=== PATIENT | male | born 1960 | race Caucasian/White ===

== ENCOUNTER → 2023-11-02 07:12 | Outpatient (REF) | payer MEDICARE, SELFPAY | LOC: RCS 07:12 | PROVIDERS: ATTENDING PHYSICIAN Nuclear Medicine Nuclear Cardiology; FAMILY PHYSICIAN Family Medicine | DX: R07.89 Other chest pain (principal); R94.31 Abnormal electrocardiogram [ECG] [EKG]; I34.0 Nonrheumatic mitral (valve) insufficiency | CPT/HCPCS: 93306 ==

== ENCOUNTER → 2023-11-08 12:42 | Outpatient (REF) | payer MEDICARE, SELFPAY | LOC: RCS 12:42 | PROVIDERS: ATTENDING PHYSICIAN Nuclear Medicine Nuclear Cardiology; FAMILY PHYSICIAN Family Medicine | DX: R07.89 Other chest pain (principal); R94.31 Abnormal electrocardiogram [ECG] [EKG]; I34.0 Nonrheumatic mitral (valve) insufficiency | CPT/HCPCS: 93017; 93350 ==

== ENCOUNTER → 2023-11-19 06:37 | Day surgery (SDC) | payer MEDICARE, SELFPAY | LOC: GI 06:37 | PROVIDERS: ATTENDING PHYSICIAN Internal Medicine Gastroenterology; FAMILY PHYSICIAN Family Medicine | DX: Z12.11 Encounter for screening for malignant neoplasm of colon (principal); Z86.010 Personal history of colon polyps; K64.8 Other hemorrhoids | CPT/HCPCS: G0105 ==

== ENCOUNTER → 2024-12-05 11:52 | Outpatient (REF) | payer MEDICARE, SELFPAY | LOC: HWRAD 11:52 | PROVIDERS: ATTENDING PHYSICIAN Family Medicine | DX: M54.2 Cervicalgia (principal); M25.561 Pain in right knee; M25.562 Pain in left knee; M79.641 Pain in right hand; M79.642 Pain in left hand; M79.671 Pain in right foot; M79.672 Pain in left foot | CPT/HCPCS: 72052; 73130; 73564; 73630 ==

== ENCOUNTER 2025-01-26 07:56 | Emergency (ER) | payer MEDICARE, SELFPAY ==
[2025-01-26] VITALS (8 sets, daily range): BP systolic 123–153; BP diastolic 64–86; PULSE 55–61; BMI 23.1
[2025-01-26] MEDS: NSS 1000 IV (08:55)
[2025-01-26 09:01] LABS: % Basophils 0.7 % (0-2); % Eosinophils 2.6 % (0-6); % Immature Granulocytes 0.2 % (0-0.5); % Lymphocytes 27.4 % (20.5-51.1); % Monocytes 12.1 % (1.7-9.3); Absolute Eosinophils 0.1 10^3/uL (0-0.7); Absolute Lymphocytes 1.5 10^3/uL (1.2-3.4); Absolute Monocytes 0.7 10^3/uL (0.1-0.6); Absolute Neutrophils 3.1 10^3/uL (1.4-6.5); Hematocrit 46.9 % (39.0-52.0); Hemoglobin 16.6 g/dL (13.0-18.0); Mean Corp Hgb Conc. 35.4 g/dL (33.0-37.0); Mean Corpuscular Hgb 34.3 pg (27.0-31.0); Mean Corpuscular Volume 96.9 fL (80.0-94.0); Mean Platelet Volume 12.1 fL (7.4-10.4); Nucleated Red Blood Cells % 0 % (-); Platelet Count 214 10^3/uL (130-400); Red Blood Cell Count 4.84 10^6/uL (4.70-6.10); Red Cell Dist. Width 12.6 % (11.5-14.5); White Blood Cell Count 5.4 10^3/uL (4.8-10.8)
[2025-01-26 09:26] LABS: ALT (SGPT) 25 U/L (0-50); AST (SGOT) 31 U/L (17-59); Albumin 4.3 g/dl (3.5-5.0); Alkaline Phosphatase 70 U/L (38-126); Blood Urea Nitrogen 15 mg/dl (9-20); Calcium 9.7 mg/dl (8.4-10.2); Carbon Dioxide 27 mmol/L (22-30); Chloride 108 mmol/L (98-107); Creatine Phosphokinase 143 U/L (55-170); Estimated Creatinine Clearance 107 ml/min; Glucose 99 mg/dl (70-99); Potassium 4.2 mmol/L (3.5-5.1); Sodium 141 mmol/L (135-145); Total Bilirubin 1.9 mg/dl (0.2-1.3); eGFR > 60.00
--- NOTE | 2025-01-26 10:30 | ED.GENMED ---
History of Present Illness
General
Chief Complaint: Dizziness
Source: patient and spouse
Time Seen by Provider: 01/26/25 08:36
History of Present Illness
History of Present Illness:
64-year-old male who presents with feeling lightheadedness for the last week. States that it comes and goes. States yesterday seem to be a little worse. He was outside doing work and does often ride his bike. States he often rides more than 40
to 45 miles. Admits he was also on the stationary bike. Went to [place] over the weekend and just felt like maybe he should not do his normal bike routine. States it is really just a lightheadedness. Denies any chest pain. states that
he does drink 2 cups of coffee a day and patient states he could be better in his hydration but does try to drink water. Denies melena or hematochezia. No chest pain. No back pain. No headache. No vision change. No gait disturbance. Currently
feels better. No symptoms while lying in bed.
Past History
Past History
ED Past Medical History: Asthma
ED Past Surgical History: Orthopedic
Patient has exhibited threatening behavior?: No
PSI?: No
Phy Exam
Physical Exam
Physical Exam:
CONSTITUTIONAL Patient alert and oriented to person, place and time. Well-appearing. Vital signs reviewed.
HEAD atraumatic, normocephalic.
EYES eyelids normal to inspection, Extraocular muscles intact, Conjunctiva normal, Sclera normal.
NECK normal range of motion, Trachea midline, no jugular venous distention.
RESPIRATORY CHEST No respiratory distress noted, Chest expansion equal, Bilateral breath sounds clear.
CARDIOVASCULAR regular rate and rhythm, Heart sounds normal.
ABDOMEN abdomen nontender, Bowel sounds normal. No distention.
BACK normal inspection, no obvious deformities
UPPER EXTREMITY range of motion normal, Motor strength normal, no cyanosis, no edema.
LOWER EXTREMITY range of motion normal, Motor strength normal, no cyanosis, no edema.
NEURO Speech normal, No focal motor deficits, Keila coma scale 15, Memory normal, Cranial Nerves intact to screening exam. Normal finger-nose, normal [id number]. No pronator drift
SKIN skin warm, dry, and normal in color.
Course
Orders/Labs/Results
Orders:
Orders
01/26/25 07:59
ECG [Electrocardiogram (*1)] Urgent
Reason for Study: Vertigo / Dizzy
01/26/25 08:00
EKG- Treatment ONCE
01/26/25 08:48
CMP [Comprehensive Metabolic Panel] Urgent
Complete Blood Count/With Diff Urgent
Creatine Phosphokinase Urgent
Comment: ADD ON
01/26/25 08:51
0.9% Sodium Chloride 1000 ml [Nss] 1,000 ml IV BOLUS
01/26/25 08:52
Add On- LAB Urgent
Tests Added?: cpk
Abnormal Lab Results
01/26/25
08:48
MCV 96.9 H fL
(80.0-94.0)
MCH 34.3 H pg
(27.0-31.0)
MPV 12.1 H fL
(7.4-10.4)
Absolute Monos (auto) 0.7 H 10^3/uL
(0.1-0.6)
Monocytes % 12.1 H %
(1.7-9.3)
Chloride 108 H mmol/L
(98-107)
Total Bilirubin 1.9 H mg/dl
(0.2-1.3)
01/26/25 08:48
01/26/25 08:48
Vital Signs
Initial and Last Documented VS:
Initial Vital Signs
Temp Pulse Resp BP Pulse Ox
97.7 F 65 18 141/86 100
01/26/25 07:57 01/26/25 07:57 01/26/25 07:57 01/26/25 07:57 01/26/25 07:57
Last Documented Vital Signs
Temp Pulse Resp BP Pulse Ox
97.7 F 49 14 123/64 98
01/26/25 07:57 01/26/25 10:00 01/26/25 10:00 01/26/25 10:00 01/26/25 09:30
MDM/Problems Addressed
Differential Diagnosis Includes:
CVA, dysrhythmia, electrolyte balance, dehydration, heart failure
MDM/Problems Addressed:
Lightheadedness, sinus bradycardia
*Pulse Oximetry
Patient hypoxic: no
*EKG
Interpreted by ED Provider?: Yes
Interpretation: normal
Rate: bradycardiac
Rhythm: sinus and PAC's
[place]: normal axis
Ischemia: no ischemia
*Billiard Table Repairer Interpretation
Rate: bradycardiac
Interpretation: normal
Rhythm: sinus
*Critical Care Note
Total Time (30-74mins, 75-104mins- exclusive of procedures): Not Applicable
Data Reviewed
Review of Other/Old Records Reveals: Other (2023 echocardiogram reveals normal ejection fraction)
Source: patient and spouse
Further Testing Considered But Not Given:
Considered head CT but no focal findings and symptoms are more lightheadedness. No vertigo or concerns for [employer] dysfunction
Patient Management
Escalation/DeEscalation of care consider admission/obs:
Patient appears quite well. Labs grossly reassuring. He is very active. Recommended to increase hydration and include electrolytes but also follow-up with PCP. If symptoms persist, further workup may be necessary. Labs and EKG thus far
unremarkable
ED Attending Note
-
Portions of this chart may have been created with voice recognition software.� Occasional wrong word or��sound alike� substitutions may have occurred due to the inherent limitations of voice recognition software.
Discharge Plan
Departure
Patient Disposition: Home (Routine Discharge)
Date of Disposition: 01/26/25
Time of Disposition: 10:36
Patient with high blood pressure during this ER visit?: No
Discharge Problem:
Episodic lightheadedness
Prescriptions:
No Action
montelukast [Singulair] 10 mg Tablet
10 mg PO DAILY
albuterol sulfate 90 mcg/actuation Hfa Aerosol Inhaler
1 puff INHALATION PRN PRN (Reason: SOB/ Exercise)
budesonide-formoterol [Symbicort] 160-4.5 mcg/actuation Hfa Aerosol Inhaler
2 puff INHALATION BID
Referrals:
Gila Tee MD [Family Provider] -
Activity Restrictions/Additional Instructions:
Please see your doctor in the next 1 week for follow-up and reevaluation. If symptoms persist, further workup may be necessary. In the meantime please drink plenty of fluids as discussed. Return immediately for chest pain, shortness of breath,
palpitations, worsening symptoms, dizziness, vision changes or any other concerns.
Interventions
Interventions:
*Risk Screen - Suicide Last Done: 01/26/25 07:57
*General Assessment Last Done: 01/26/25 07:57
*Neglect/Abuse Screening Last Done: 01/26/25 09:23
*ED- Fall Risk Assessment Last Done: 01/26/25 08:33
*ED COVID-19 Vaccine History Last Done: 01/26/25 08:33
ED- Neurological Assessment Last Done: 01/26/25 08:33
ED- Cardiac Assessment Last Done: 01/26/25 08:33
Discharge Date and Time
Print Language: LEBANESE
== END 2025-01-26 11:19 | disposition home or self-care (01) ==
LOC: EMR 07:56
PROVIDERS: Emergency Medicine; EMERGENCY PHYSICIAN Emergency Medicine; FAMILY PHYSICIAN Family Medicine
DX: R42 Dizziness and giddiness (principal); J45.909 Unspecified asthma, uncomplicated
CPT/HCPCS: 99283; 96360; 80053; 82550; 85025; 93005

== ENCOUNTER → 2025-02-27 07:53 | Outpatient (REF) | payer MEDICARE, SELFPAY | LOC: HWRAD 07:53 | PROVIDERS: ATTENDING PHYSICIAN Physical Medicine & Rehabilitation; FAMILY PHYSICIAN Family Medicine | DX: R42 Dizziness and giddiness (principal) | CPT/HCPCS: 93880 ==

== ENCOUNTER → 2025-04-23 09:08 | Outpatient (REF) | payer MEDICARE, SELFPAY | LOC: RCS 09:08 | PROVIDERS: ATTENDING PHYSICIAN Nuclear Medicine Nuclear Cardiology; FAMILY PHYSICIAN Family Medicine | DX: R07.89 Other chest pain (principal); R42 Dizziness and giddiness | CPT/HCPCS: 93017; 93350 ==